=== PATIENT | male | born 1975 | race Two or more races ===

== ENCOUNTER → 2017-05-11 | Emergency (ER) | payer OTHER ==
[~2017-05-11] VITALS: Ht 177.8 cm; Wt 81.6 kg
== END | disposition home or self-care (01) ==
LOC: ER 16:10
DX: R00.2 Palpitations (principal); F14.10 Cocaine abuse, uncomplicated; F10.988 Alcohol use, unspecified with other alcohol-induced disorder

== ENCOUNTER 2020-06-06 13:08 | Emergency (ER) | payer OTHER ==
[~2020-06-06] VITALS: Ht 175.3 cm; Wt 81.6 kg
[2020-06-06] MEDS ORDERED: KETO10TA2 PO (13:32)
[2020-06-06] MEDS ORDERED: MUPIROCIN1 G1 TOP (13:52)
[2020-06-06] MEDS ORDERED: ACETAMINOPHEN500 M1 PO (13:57)
[2020-06-06] MEDS ORDERED: TYLENOL ARTHRI650 MG PO (13:58)
== END 2020-06-06 14:40 | disposition home or self-care (01) ==
LOC: ER 13:08
DX: S51.832A Puncture wound without foreign body of left forearm, initial encounter (principal); W45.0XXA Nail entering through skin, initial encounter; Y93.89 Activity, other specified; Y92.69 Other specified industrial and construction area as the place of occurrence of the external cause; Y99.8 Other external cause status